=== PATIENT | female | born 2000 | race Caucasian/White ===

== ENCOUNTER 2022-02-19 15:05 | Outpatient (CLI) | payer OTHER, SELFPAY ==
[2022-02-19 18:28] LABS: Bilirubin Direct* 0.3 mg/dL (0.0-0.5); Bilirubin Total* 0.4 mg/dL (0.1-1.5)
[2022-02-19 18:29] LABS: Alanine Aminotransferase* 18 U/L (4-35); Alkaline Phosphatase* 153 U/L (40-150); Aspartate Amino Transferase* 20 U/L (12-35); Total Protein* 8.2 g/dL (6.0-8.3)
== END 2022-02-19 15:06 | disposition home or self-care (01) ==
PROVIDERS: Visit Provider Obstetrics & Gynecology
DX: R39.15 Urgency of urination (principal); Z79.899 Other long term (current) drug therapy
CPT/HCPCS: 80076; 87086

== ENCOUNTER 2022-02-22 14:50 | Outpatient (CLI) | payer OTHER, SELFPAY ==
[2022-02-22 11:23] LABS: Alkaline Phosphatase* 138 U/L (40-150); Gamma Glutamyl Transpeptidase* 36 U/L (8-55)
== END 2022-02-22 14:51 | disposition home or self-care (01) ==
PROVIDERS: Visit Provider Obstetrics & Gynecology
DX: R74.8 Abnormal levels of other serum enzymes (principal)
CPT/HCPCS: 82977; 84075

== ENCOUNTER 2022-05-22 08:00 | Outpatient (RCR) | payer OTHER, SELFPAY | END 2022-07-26 10:43 | disposition home or self-care (01) | PROVIDERS: Visit Provider Obstetrics & Gynecology | DX: R10.2 Pelvic and perineal pain (principal); G89.29 Other chronic pain; N80.9 Endometriosis, unspecified; R10.30 Lower abdominal pain, unspecified; Z51.89 Encounter for other specified aftercare | CPT/HCPCS: 97110; 97140; 97161; 97535 ==